=== PATIENT | male | born 1990 | race Caucasian/White ===

== ENCOUNTER 2017-12-12 14:03 | Emergency (ER) | payer OTHER, BC ==
[~2017-12-12] VITALS: Ht 167.6 cm; Wt 59.0 kg
[2017-12-12 14:20] VITALS: BP 144/73
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
[2017-12-12] MEDS ORDERED: CYCL10TA2 PO (15:23)
[2017-12-12] MEDS ORDERED: NAPR-514 PO (15:23)
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
== END 2017-12-12 15:40 | disposition home or self-care (01) ==
LOC: ER 14:03
DX: S13.9XXA Sprain of joints and ligaments of unspecified parts of neck, initial encounter (principal); R51 Headache; Z88.0 Allergy status to penicillin; V47.5XXA Car driver injured in collision with fixed or stationary object in traffic accident, initial encounter; Y93.89 Activity, other specified; Y92.410 Unspecified street and highway as the place of occurrence of the external cause; Y99.8 Other external cause status
CPT/HCPCS: 72040; 99284